=== PATIENT | male | born 1970 ===

== ENCOUNTER → 2018-10-13 | Outpatient (CLI) | payer OTHER ==
--- NOTE | 2018-10-13 16:15 | RAD ---
Two-view lumbar spine 10/13/2018 CLINICAL INDICATION: Low back pain. COMPARISON: None. FINDINGS: There are 5 nonrib-bearing lumbar-type vertebral bodies with 1st considered L1. There is minimal grade 1 interval these is L4-L5. Vertebral body heights are maintained. Mild spondylosis most prominent at L5-S1 with disc space narrowing, endplate sclerosis and marginal osteophyte formation. Mild sacroiliac osteoarthritis. Surgical suture material scattered throughout the abdomen and right upper quadrant cholecystectomy clips. IMPRESSION: Mild lower lumbar spondylosis at L5-S1 and minimal grade one antral listhesis L4 on L5. Electronically signed by: Joseph Lechuga MD (10/13/2018 4:10 PM) [facility] [place]
== END | disposition home or self-care (01) ==
LOC: RAD 15:40
PROVIDERS: ATTEND Surgery
DX: M47.817 Spondylosis without myelopathy or radiculopathy, lumbosacral region (principal); M48.07 Spinal stenosis, lumbosacral region
CPT/HCPCS: 72100